=== PATIENT | female | born 1955 | race Caucasian/White ===

== ENCOUNTER → 2016-12-25 | Outpatient (CLI) | payer OTHER | LOC: CIMAGING 10:53 | PROVIDERS: ATTEND Family Medicine | DX: R10.11 Right upper quadrant pain (principal) | CPT/HCPCS: 76705-PO ==

== ENCOUNTER → 2017-01-07 | Outpatient (CLI) | payer OTHER | LOC: FIMAGING 08:46 | PROVIDERS: ATTEND Family Medicine | DX: R10.11 Right upper quadrant pain (principal) | CPT/HCPCS: A9537 ==

== ENCOUNTER 2018-06-14 21:05 | Emergency (ER) | payer OTHER ==
[2018-06-14 21:40] VITALS: BP 147/123
[2018-06-14] MEDS ORDERED: DIAZEPAM 5 MG PREPACK#4 BTL TAKEHOME ONE (22:05)
--- NOTE | 2018-06-14 22:05 | EDPHY ---
H & P Stated Complaint: back spasm, weakness Time Seen by Provider: 06/14/18 21:49 HPI/ROS: CHIEF COMPLAINT: Low back/gluteal pain HISTORY OF PRESENT ILLNESS: The patient is a 62-year-old female who had arthroscopic surgery on her left ankle 2 weeks ago. She then got a colitis infection 3 days ago and is currently on ciprofloxacin and Flagyl. She has been pushing around on a scooter because of her ankle surgery and has began to have spasming me in her left lower back/gluteal region. No paralysis or weakness. No numbness. No saddle anesthesia. No bowel or bladder abnormalities. No fever. No trauma. She had a CT scan done of her abdomen and pelvis done 3 days ago that did not show any type of fractures or masses. His symptoms hurt worse with movement. They improved with massage. Severity: Moderate Modifying factors: Movement REVIEW OF SYSTEMS: Constitutional: denies: chills, fever, recent illness, recent injury EENTM: denies: blurred vision, double vision, nose congestion Respiratory: denies: cough, shortness of breath Cardiac: denies: chest pain, irregular heart rate, lightheadedness, palpitations Gastrointestinal/Abdominal: denies: abdominal pain, diarrhea, nausea, vomiting, blood streaked stools Genitourinary: denies: dysuria, frequency, hematuria, pain Musculoskeletal: See HPI Skin: denies: lesions, rash, jaundice, bruising Neurological: denies: headache, numbness, paresthesia, tingling, dizziness, weakness Hematologic/Lymphatic: denies: blood clots, easy bleeding, easy bruising Immunologic/allergic: denies: HIV/AIDS, transplant 10 systems reviewed and negative except as noted EXAM: GENERAL: Well-appearing, well-nourished and in no acute distress. HEAD: Atraumatic, normocephalic. EYES: Pupils equal round and reactive to light, extraocular movements intact, sclera anicteric, conjunctiva are normal. ENT: TMs normal, nares patent, oropharynx clear without exudates. Moist mucous membranes. NECK: Normal range of motion, supple without lymphadenopathy or JVD. LUNGS: Breath sounds clear to auscultation bilaterally and equal. No wheezes rales or rhonchi. HEART: Regular rate and rhythm without murmurs, rubs or gallops. ABDOMEN: Soft, nontender, normoactive bowel sounds. No guarding, no rebound. No masses appreciated. BACK: No CVA tenderness, no spinal tenderness, step-offs or deformities EXTREMITIES: Left gluteal pain and spasming. No lumbar pain or bony tenderness. NEUROLOGICAL: Cranial nerves II through XII grossly intact. Normal speech, normal gait. 5/5 strength, normal movement in all extremities, normal sensation , normal reflexes, no paresthesias. No saddle anesthesia. Normal strength in lower extremities. PSYCH: Normal mood, normal affect. SKIN: Warm, dry, normal turgor, no visible rashes or lesions. Source: Patient Exam Limitations: No limitations - Personal History Current Tetanus Diphtheria and Acellular Pertussis (TDAP): Yes - Medical/Surgical History Hx Asthma: No Hx Chronic Respiratory Disease: No Hx Diabetes: No Hx Cardiac Disease: No Hx Renal Disease: No Hx Cirrhosis: No Hx Alcoholism: No Hx HIV/AIDS: No Hx Splenectomy or Spleen Trauma: No Other PMH: Breast implant,hernia,hysterectomy. fat tumor lower back removed. hyperlipidemia,migraines. Knee and ankle repair. Anxiety. - Family History Significant Family History: No pertinent family hx - Social History Smoking Status: Current every day smoker Alcohol Use: Sober Drug Use: None Constitutional: Initial Vital Signs Temperature (C) 37.0 C 06/14/18 21:35 Heart Rate 78 06/14/18 21:35 Respiratory Rate 18 06/14/18 21:35 Blood Pressure 147/123 H 06/14/18 21:35 O2 Sat (%) 96 06/14/18 21:35 O2 Delivery Mode Room Air Allergies/Adverse Reactions: Sulfa (Sulfonamide Antibiotics) Allergy (Verified 06/14/18 21:26) Home Medications: Medication Instructions Recorded Atorvastatin Calcium [Lipitor 10 03/03/15 mg (*)] Ezetimibe [Zetia 10 MG (RX)] 03/03/15 busPIRone [Buspar (*)] 03/03/15 Ondansetron Odt [Zofran Odt] 4 mg PO Q4PRN PRN #20 tab 08/22/15 Diazepam [Valium 5 MG (*)] 5 mg PO TID PRN #10 tab 06/14/18 Medical Decision Making Procedures: Trigger point injections: Patient was given 2 trigger point injections in her left gluteal region and left L5 paraspinous muscle region. 20 cc of bupivacaine 0.5% were injected. She had improvement in pain. ED Course/Re-evaluation: The patient is feeling better with an injection. We discussed options for pain control. We decided to try Valium. She would prefer to avoid opiates that will constipate her when she is dealing with colitis. She will follow up with her regular doctor in the next couple of days or return here to Emergency Department if she feels worse. Differential Diagnosis: Partial list of the Differential diagnosis considered include but were not limited to; muscle spasm, infection, arthritis and although unlikely based on the history and physical exam, I also considered radiculopathy, cauda equina, space occupying lesion, ischemia. I discussed these differential diagnoses and the plan with the patient as well as the usual and expected course. The patient understands that the diagnosis is provisional and that in medicine we are not always correct and that further workup is often warranted. Usual and customary warnings were given. All of the patient's questions were answered. The patient was instructed to return to the emergency department should the symptoms at all worsen or return, otherwise to followup with the physician as we discussed. - Data Points Medications Given: Discontinued Medications Diazepam (Valium 5 Mg Prepack#4) 1 btl [employer] EDNOW ONE Stop: 06/14/18 22:06 Last Admin: 06/14/18 22:13 Dose: 1 btl Departure - Departure Disposition: Home, Routine, Self-Care Clinical Impression: Muscle spasm of back Condition: Fair Instructions: Diazepam (By mouth), Muscle Spasm (ED) Referrals: Nan Barrow, DO [Primary Care Provider] - 2-3 days, if not improved Prescriptions: Diazepam [Valium 5 MG (*)] 5 mg PO TID PRN #10 tab PRN Reason: Spasms
== END 2018-06-14 22:25 | disposition home or self-care (01) ==
PROC: 3E023BZ Introduction of Anesthetic Agent into Muscle, Percutaneous Approach (ICD-10-PCS; principal; 2018-06-14)
DX: M62.830 Muscle spasm of back (principal)